=== PATIENT | female | born 1955 | race African-American/Black ===

== ENCOUNTER 2020-05-07 09:31 | Inpatient (IN) | payer MEDICARE, OTHER ==
[2020-05-07] MEDS ORDERED: Dexamethasone 10 MG/ML VIAL ONE (09:50)
[2020-05-07] MEDS ORDERED: Acetaminophen 500 MG TAB ONE (10:25)
[2020-05-07 11:14] LABS: Hemoglobin 14.9 g/dL (12.0-16.0); Mean Corpuscular HGB CONC 31.7 g/dL (32.0-36.0); Mean Corpuscular Hemoglobin 30.6 pg (27.0-31.0); Mean Corpuscular Volume 96.6 fL (78.0-98.0); Mean Platelet Volume 8.7 fL (7.4-10.4); Platelet Count 441 thou/uL (130-400); RBC Distribution Width 15.6 % (11.5-14.5); Red Blood Cell (RBC) Count 4.86 mill/uL (4.20-5.40); White Blood Cell (WBC) Count 10.7 thou/uL (4.8-10.8)
[2020-05-07] MEDS ORDERED: Ondansetron PF 4 MG/2 ML Vial IVP PRN (11:34)
[2020-05-07] MEDS ORDERED: Guaifenesin DM 100-10/5 ML UDCUP PO PRN (11:34)
[2020-05-07] MEDS ORDERED: Ondansetron ODT 4 MG TAB PO PRN (11:34)
[2020-05-07] MEDS ORDERED: Enoxaparin Sodium 40 MG/0.4 ML SYRINGE SC SCH (11:34)
--- NOTE | 2020-05-07 11:34 | PDOC.FPRHP ---
- History of Present Illness Chief Complaint: increased SOB History of Present Illness: This 65 yo F is a bounceback < 24 hours from discharge to SNF. She arrived at [facility] approximately at 9 pm last night and was hypoxic in the 70s%. It took the nursing staff several hours of placing patient on oxygen face mask and repositioning her to get her oxygen saturation back into the 80s%. The patient cannot recall any specific time or event that led to her worsening status. She endorsed feeling more short of breath; but denies any associated chest pain, increased coughing, change in sputum production, fever, nausea, or vomiting. Denies pain w/ inspiration. She reports feeling like she takes shallow breaths when she does not "focus on my breathing." ED Course: Received dexamethasone 10mg in ED. Repeated labs and CTA of chest. - Allergies/Adverse Reactions Allergies Allergy/AdvReac Type Severity Reaction Status Date / Time Penicillins Allergy Verified 05/07/20 00:42 - Home Medications Medication Instructions Recorded Confirmed Type Aspirin [Ecotrin Low Strength] 81 mg PO DAILY 04/19/20 05/07/20 History Albuterol Sulfate [Proventil Hfa] 2 puff INH Q4HR PRN #1 inhaler 05/02/20 Rx Enoxaparin Sodium [Lovenox] 70 mg SC BID 14 Days #14 syringe 05/02/20 05/07/20 Rx Guaifenesin DM 100-10 [Robitussin 15 ml PO Q4H PRN ml 05/02/20 05/07/20 Rx DM] Inhaler, Assist Devices 1 each MC DAILY #1 spacer 05/02/20 05/07/20 Rx [Aerochamber Plus Flow-Vu] Tiotropium [place] [Spiriva 2 inh IH DAILY #1 inhaler 05/02/20 05/07/20 Rx Respimat] Acetaminophen [Tylenol Regular 650 mg PO Q4H PRN tab 05/06/20 05/07/20 Rx Strength] Albuterol Sulfate [Proventil Hfa] 2 puff INH [id number] PRN aer 05/06/20 05/07/20 Rx Calcium Carbonate [Tums] 1,000 mg PO Q4H PRN tab 05/06/20 05/07/20 Rx Furosemide [Lasix] 20 mg PO DAILY tab 08/19/20 08/20/20 Rx Ipratropium [Atrovent HFA] 1 puff INH QID-RT aerosol 05/06/20 05/07/20 Rx Ipratropium [Atrovent HFA] 1 puff INH QID-RT PRN aerosol 05/06/20 05/07/20 Rx Mometasone 200 MCG [Asmanex Hfa 400 mcg INH BID-RT inhaler 05/06/20 05/07/20 Rx 200 Mcg] Pantoprazole [Protonix] 40 mg PO DAILY PRN pk 05/06/20 05/07/20 Rx predniSONE 50 mg PO QAM-WM #14 tab 05/06/20 05/07/20 Rx - History PMHx: HTN, presumed COPD, reported hx of CHF but no Echo. PSHx: x2 FHx: noncontributory Social: - Current smoker prior to becoming ill. Last cigarette about 1 month ago. 50- pack year history. - denies alcohol - denies illicit drugs - Review of Systems General: denies: fever/chills, weight/appetite/sleep changes ENT: denies: nasal congestion Respiratory: reports: cough, shortness of breath, exercise intolerance Cardiovascular: denies: chest pain, edema, orthopnea Gastrointestinal: denies: nausea, vomiting, abdominal pain Genitourinary: denies: dysuria Skin: denies: rashes Musculoskeletal: denies: pain, swelling Neurological: denies: syncope Psychological: denies: anxiety, depression - Vital signs BP: 103/57, Pulse: 72, Resp: 23, Pain: 0, O2 sat: 93 on (High Flow O2), Time: 11:42. Wt: 96 kg - Physical Exam Constitutional: NAD, awake, alert and oriented HEENT: normocephalic and atraumatic, PERRLA, conjunctiva clear, no scleral icterus, grossly normal hearing, MMM Neck: trachea midline, no LAD, no JVD, no thyromegaly Heart: RRR, normal S1/S2, no murmurs/rubs/gallops, pulses present, no edema ( appears euvolemic) -Lungs: dimished breath sounds bilaterally, no wheezing, difficult to auscultate, no dullness to percussion Abdomen: soft, non-tender, no masses/distention -Abdomen: no CVA tenderness Musculoskeletal: normal structure, normal tone Neurological: no focal deficit -Skin: small 1 cm diameter skin abrasion on L buttocks Psychiatric: normal mood and affect, intact recent and remote memory FMR H&P: Results - Labs Result Diagrams: 05/07/20 11:03 05/07/20 11:03 Lab results: WBC 10.7 thou/uL (4.8-10.8) 05/07/20 11:03 Hgb 14.9 g/dL (12.0-16.0) 05/07/20 11:03 Hct 46.9 % (36.0-47.0) 05/07/20 11:03 MCV 96.6 fL (78.0-98.0) 05/07/20 11:03 Plt Count 441 thou/uL (130-400) H 05/07/20 11:03 - EKG Interpretation EKG: NSR - Radiology Interpretation Chest x-ray Status: image reviewed by me, report reviewed by me CT scan - chest Status: image reviewed by me, report reviewed by me Additional comment: no pulmonary embolus. Stable interstitial lung disease. FMR H&P: A/P - Problem List (1) HTN (hypertension) Current Visit: No Status: Acute Code(s): I10 - ESSENTIAL (PRIMARY) HYPERTENSION (2) Pneumonia due to COVID-19 virus Current Visit: No Status: Acute Code(s): U07.1 - COVID-19; J12.89 - OTHER VIRAL PNEUMONIA - Plan 65 yo F readmitted less than 1 day after discharge to SNF facility due to : Acute vs. [id number] hypoxic respiratory failure 2/2 Covid pneumonia DDx: pt may likely also have COPD versus other chronic interstitial lung disease. Pt did tell me she was living in an apartment that has asbestos and got new apartment assigned on her last admission; this could be potential cause of lung problems. Will assess how long she lived in that apartment. Consider other atypical causes such as superimposed histoplasmosis, coccicioides, although pt is immunocompetent as far as we know. Otherwise, we may consider autoimmune workup such as sarcoidosis and check other autoimmune biomarkers. Her smoking history may suggest pulmonary fibrosis or langerhans cell histiocytosis. - patient has had difficulty weaning off of oxygen - CTA rule out PE - we will continue inhaled treatments of mometasone, ipratropium, albuterol - continue prednisone at 40mg PO daily - patient is tolerating PO so we will keep her on PO medications. - continue O2 support, varies between 5L NC and requiring HFNC - > 20 days from onset of symptoms. Discontinue Covid precautions. Hx of HTN Questionable history of CHF - monitor BPs Smoking History - continue cessation Code: FULL VTE: therapeutic lovenox GI ppx: none Abx: none Diet: Heart healthy Disposition/LOS: admit to telemetry, inpatient. ELOS> 48H. Addendum - Attending - Attending Attestation Date/Time: 05/07/20 4849 I personally evaluated the patient and discussed the management with Dr. Grimes. I agree with the History, Examination, Assessment and Plan documented above with any addition or exceptions noted below. Patient appears the same clinically as upon discharge. I am uncertain of the reason for her decompensation. I feel she likely just has residual pulmonary damage from COVID, but we will d/w pulm and ID.
[2020-05-07] MEDS ORDERED: Albuterol Sulfate 2.5 mg/3 ml Neb NEB PRN (11:36)
[2020-05-07] MEDS ORDERED: Ipratropium Bromide 2.5 ml Neb NEB PRN (11:36)
[2020-05-07 11:42] LABS: Band 1 % (5-11); Lymphocytes 15 % (21-51); MDiff Complete? YES; Monocytes 6 % (0-10); Neutrophil 77 % (42-75); Platelet Morphology Comment Appears Increased; RBC Morphology Normal; Reactive Lymphocytes 1 % (0-10)
--- NOTE | 2020-05-07 11:47 | CT ---
CT PULMONARY ANGIOGRAM WITH IV CONTRAST AND 3-D POSTPROCESSING: HISTORY:Worsening shortness of breath. COPD COMPARISON: 04/19/2020 FINDINGS: There is good contrast opacification of the pulmonary arterial vasculature without filling defects to suggest pulmonary embolism. Dilated pulmonary arterial trunk is stable at 3.8 cm. The thoracic aorta is not opacified opacified without aneurysm. No pleural or pericardial effusions are seen. No pneumothoraces, focal areas of consolidation, groundglass opacities or lung nodules are noted. Chr onic parenchymal changes (interstitial lung disease) are stable. There are degenerative changes in the spine. Upper abdominal tomograms demonstrate cholelithiasis and left renal atrophy.. IMPRESSION: No CT evidence of pulmonary embolism.
[2020-05-07 11:53] LABS: ALT (SGPT) 55 U/L (8-55); AST (SGOT) 25 U/L (5-34); Albumin 3.2 g/dL (3.4-4.8); Alkaline Phosphatase 73 U/L (40-110); Anion Gap 17 mmol/L (10-20); BUN (Urea Nitrogen) 41 mg/dL (9.8-20.1); Bilirubin, Total 0.8 mg/dL (0.2-1.2); Calc. Creatinine Clearance 0 mL/min (70-130); Calcium 8.1 mg/dL (7.8-10.44); Carbon Dioxide 20 mmol/L (23-31); Chloride 99 mmol/L (98-107); Estimated GFR-MDRD 89; Globulin 2.8 g/dL (2.4-3.5); Glucose 122 mg/dL (80-115); Potassium 5.5 mmol/L (3.5-5.1); Sodium 130 mmol/L (136-145)
[2020-05-07] MEDS ORDERED: Enoxaparin Sodium 80 MG/0.8 ML SYRINGE SC SCH (12:15)
[2020-05-07] MEDS ORDERED: Iopamidol-370 76% 500 ML 1 ML ONE (13:38)
[2020-05-07] MEDS ORDERED: Albuterol Sulfate 2.5 mg/3 ml Neb NEB SCH (14:30)
[2020-05-07] MEDS ORDERED: Ipratropium Bromide 2.5 ml Neb NEB SCH (14:30)
[2020-05-07] MEDS: Lactated Ringer's 1,000 ML IV SCH (16:03)
[2020-05-07] MEDS ORDERED: Albuterol 200 PUFF (6.7GM INHALER) INH PRN (16:59)
[2020-05-07] MEDS: Albuterol 200 PUFF (6.7GM INHALER) INH SCH ×2 (17:22→22:12)
[2020-05-07] MEDS: Acetaminophen 325 MG TAB PO PRN ×2 (17:23→22:17)
[2020-05-07] MEDS: Enoxaparin Sodium 80 MG/0.8 ML SYRINGE SC SCH (19:40)
--- NOTE | 2020-05-07 19:40 | CON ---
DATE OF CONSULTATION: 05/07/2020 REASON FOR CONSULTATION: Persistent dyspnea, hypoxemia following resolution of the initial phase of COVID infection. HISTORY OF PRESENT ILLNESS: A 65-year-old who has a history of hypertension and had 2 or 3 weeks' history of shortness of breath before she was admitted at the beginning of this month. She also had fever and cough and diarrhea. She tried to stay home, but things got worse and she ended up admitted with O2 saturation of 68% on room air. The patient had a CT of chest on 04/19, which demonstrated interstitial prominence throughout lungs with subpleural predominance. Her SARS -CoV was positive on 04/19. The lymphocyte count 0.9. Ferritin was 570. C-reactive protein 39. D-dimer was 5.32. The patient had an extensive stay at the hospital and she was treated with enoxaparin twice daily and prednisone. It does not look like she received remdesivir or convalescent plasma. She was discharged on the and did not last long at home, came right back, so this is probably going on to the beginning of her 7th week after the onset of symptoms of her COVID infection. The lymphocyte count is at about 1300, the D-dimer is down to 1.19, the ferritin is down to 162, and a CRP is down to 0.75 with marked improvement compared with previous findings at the beginning of the month. She had a repeat CT chest angiogram with no evidence of pulmonary embolism and there was chronic parenchymal changes, but no overt consolidation. At this time, her O2 saturations were 90% on facemask and 96 on high-flow O2 supplementation. She had been using oxygen at home, but it was not clear if she used it all the time or from time to time. She was not tachycardic. She was tachypneic though. The exam was not particularly remarkable, but she did have some inspiratory crackles noticeable in the report. Currently, Ms. Garcia is seen in bed in the COVID unit. She appears comfortable at rest. She is wearing nasal cannula O2. No headaches. Sense of smell has returned. She is eating well. No vomiting. A little bit of cough, but not much. No chest pain. No abdominal pain or diarrhea. No genitourinary symptoms. No joint symptoms. No neurological symptoms. MEDICAL HISTORY: 1. Hypertension. 2. COPD. 3. Reported cardiomyopathy. Actually though we do not have the echocardiogram performed. ALLERGIES: PENICILLIN WITH RASH. FAMILY HISTORY: She lives with her son and he is apparently in no health issues. SOCIAL HISTORY: Former smoker, quit smoking within the year. No alcoholic beverage use or drug use. CURRENT MEDICATIONS: 1. Inhalers. 2. Guaifenesin. 3. Mometasone. 4. Prednisone. PHYSICAL EXAMINATION: VITAL SIGNS: Temperature 98.3, BP 119/55, pulse 60, respiratory rate 22, and O2 saturation 93 on 5 L nasal cannula. SKIN: Some minor abrasion in the left gluteal region, it was a very superficial and a healthy looking base. Peripheral IV access. She is voiding in the bedside commode. She has no lymphadenopathy. HEENT: Ocular movements conjugate. Oral cavity was not remarkable. NECK: Supple. LUNGS: A very faint crackles in a few isolated areas, but for the most part, lung sounds are clear. HEART: S1 and S2. Regular rate. No S3 or S4. ABDOMEN: Soft, not distended or tender. No ascites. No bladder distention. EXTREMITIES: No joint inflammatory activity. No edema. Pulses 1+ in dorsalis pedis. Plantar responses are flexor. Moves all extremities. NEUROLOGIC: Awake and oriented. Follows commands. Good recollection. Speech is normal. She can speak in full sentences without any issues. ASSESSMENT: 1. Hypertension. 2. Chronic obstructive pulmonary disease. 3. Smoking until recently. 4. COVID infection. Now, this is going into the 7th week following initiation of symptoms. She returns after being discharged because of dyspnea and it was not clear if she had an oximeter to measure at home or not. She did have O2 supplementation, which she is not wearing all the time apparently. DISCUSSION: It looks like her COVID infection has resolved now. We are left with the aftermath of the inflammatory process, which in her case is not very prominent. I think that she probably should do well in the upcoming days. We just have to clarify the need for her to wear O2 supplementation 24 hours a day at least at the beginning and to have a proper oximetry done that she can do at home and now we will help to reassure her and prevent the patient from coming to the emergency room. I think we can probably decrease the dose of corticosteroids to a lower dose and may consider an echocardiogram to make sure her EF is okay. It should be safer to do an echocardiogram at this point in time without any issues. I would recommend discontinuation of COVID precautions. Job ID: [id number] [email or web address]
[2020-05-07] MEDS: Mometasone Furoate 120 PUFF 220 MCG INH SCH (22:13)
[2020-05-07] MEDS: Calcium Carbonate 500 MG ChewTAB PO PRN (23:16)
[2020-05-08 00:26] VITALS: BMI 36.6
[2020-05-08] MEDS: Albuterol 200 PUFF (6.7GM INHALER) INH SCH ×6 (02:24→22:22)
[2020-05-08] MEDS: Lactated Ringer's 1,000 ML IV SCH ×3 (02:24→17:10)
[2020-05-08 04:55] LABS: #Eosinphils 0.1 thou/uL (0.0-0.7); #Lymphocytes 1.7 thou/uL (1.20-3.40); #Monocytes 1.1 thou/uL (0.11-0.59); #Neutrophils 9.2 thou/uL (1.40-6.50); %Basophils 0.1 % (0.0-1.0); %Eosinophils 0.5 % (0.0-10.0); %Lymphocytes 13.9 % (21.0-51.0); %Neutrophils 76.5 % (42.0-75.0); Hemoglobin 14.4 g/dL (12.0-16.0); Mean Corpuscular HGB CONC 33.9 g/dL (32.0-36.0); Mean Corpuscular Hemoglobin 32.5 pg (27.0-31.0); Mean Platelet Volume 8.2 fL (7.4-10.4); Platelet Count 395 thou/uL (130-400); RBC Distribution Width 15.4 % (11.5-14.5); Red Blood Cell (RBC) Count 4.42 mill/uL (4.20-5.40)
[2020-05-08 05:18] LABS: Anion Gap 14 mmol/L (10-20); BUN (Urea Nitrogen) 32 mg/dL (9.8-20.1); Calc. Creatinine Clearance 116 mL/min (70-130); Calcium 8.6 mg/dL (7.8-10.44); Carbon Dioxide 24 mmol/L (23-31); Chloride 99 mmol/L (98-107); Estimated GFR-MDRD Greater than 90; Glucose 119 mg/dL (80-115); Potassium 4.4 mmol/L (3.5-5.1); Sodium 133 mmol/L (136-145)
[2020-05-08] MEDS: Mometasone Furoate 120 PUFF 220 MCG INH SCH ×2 (06:20→19:05)
--- NOTE | 2020-05-08 07:33 | PDOC.FM ---
- Subjective Subjective: Ms. Garcia is doing well this AM. On 5L NC O2 overnight and satting in low 90s%. Denies SOB. Feels better than when she left Post. Had been living in her old apartment from 2001 until present day. It had black mold on the patricia and asbestos. She only recently applied for new apartment on her last hospital stay. 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 This often caused her respiratory trouble. Born and raised in [facility]. Denies traveling or living for certain periods of time in [facility] or other parts of the country. - Objective MAR Reviewed: Yes Vital Signs & Weight: Vital Signs (12 hours) Temp Pulse Resp BP Pulse Ox 05/08/20 02:27 97.8 F 77 24 H 105/59 L 97 05/07/20 19:38 98.4 F 80 31 H 120/67 97 Weight Weight 96.615 kg I&O: 05/07/20 05/08/20 05/09/20 06:59 06:59 06:59 Intake Total 1674 Output Total 970 Balance 704 Result Diagrams: 05/08/20 04:42 05/08/20 04:42 Phys Exam - Physical Examination Constitutional: NAD Neck: supple scattered crackles, otherwise clear Cardiovascular: RRR, no significant murmur overnight tele showed Sinus rhythm 60-70s, 16 beats of PAT w/ HR 150s Gastrointestinal: soft Musculoskeletal: no edema Neurological: non-focal, moves all 4 limbs Psychiatric: normal affect, A&O x 3 Dx/Plan (1) HTN (hypertension) Code(s): I10 - ESSENTIAL (PRIMARY) HYPERTENSION Status: Acute (2) Pneumonia due to COVID-19 virus Code(s): U07.1 - COVID-19; J12.89 - OTHER VIRAL PNEUMONIA Status: Acute - Plan Plan: 65 yo F readmitted less than 1 day after discharge to SNF facility due to : Acute vs. [id number] hypoxic respiratory failure 2/2 Covid pneumonia - consult ID. Appreciate recs. Likely post-covid recovery. - continue nebs/inhaled treatments of mometasone, ipratropium, albuterol - continue prednisone at 50mg PO daily. Slow taper of steroids for about 1 month - continue O2 support, varies between 5L NC and requiring HFNC. Wean O2 as tolerated - > 20 days from onset of symptoms. Discontinue Covid precautions. - Aggressive PT/OT due to physical deconditioning Hx of HTN Questionable history of CHF - monitor BPs - Echocardiogram ordered Smoking History - continue to encourage cessation Code: FULL VTE: therapeutic lovenox Diet: Heart healthy Disposition/LOS: admit to telemetry, inpatient. ELOS> 48H. Addendum - Attending - Attending Attestation Date/Time: 05/08/20 6041 I personally evaluated the patient and discussed the management with Dr. Grimes. I agree with the History, Examination, Assessment and Plan documented above with any addition or exceptions noted below. Bibasilar crackles, no inc wob.
[2020-05-08] MEDS: Enoxaparin Sodium 80 MG/0.8 ML SYRINGE SC SCH ×2 (08:52→20:05)
[2020-05-08] MEDS: predniSONE 50 MG TAB PO SCH (08:52)
[2020-05-08] MEDS ORDERED: predniSONE 20 MG TAB PO SCH (09:00)
[2020-05-08] MEDS: Acetaminophen 325 MG TAB PO PRN (16:06)
[2020-05-08] MEDS: Calcium Carbonate 500 MG ChewTAB PO PRN (20:08)
[2020-05-09] MEDS: Acetaminophen 325 MG TAB PO PRN ×3 (00:38→19:57)
[2020-05-09] MEDS: Albuterol 200 PUFF (6.7GM INHALER) INH SCH ×5 (02:46→22:25)
[2020-05-09] MEDS: Lactated Ringer's 1,000 ML IV SCH ×2 (02:55→15:52)
[2020-05-09] MEDS: predniSONE 50 MG TAB PO SCH (07:47)
[2020-05-09] MEDS: Enoxaparin Sodium 80 MG/0.8 ML SYRINGE SC SCH ×2 (07:47→19:56)
[2020-05-09] MEDS: Mometasone Furoate 120 PUFF 220 MCG INH SCH ×2 (08:20→18:17)
--- NOTE | 2020-05-09 08:34 | PDOC.FM ---
- Subjective Subjective: Pt resting comfortably, no complaints. Desires breakfast no fever no chills no cp no wheezing - Objective Vital Signs & Weight: Vital Signs (12 hours) Temp Pulse Resp BP Pulse Ox 05/09/20 08:00 97.9 F 68 22 H 111/59 L 90 L 05/09/20 03:00 98.2 F 70 21 H 107/58 L 91 L 05/08/20 23:39 98.9 F 78 21 H 106/52 L 91 L Weight Weight 98.157 kg I&O: 05/08/20 05/09/20 05/10/20 06:59 06:59 06:59 Intake Total 1674 2330 Output Total 970 625 Balance 704 1705 Result Diagrams: 05/08/20 04:42 05/08/20 04:42 Phys Exam - Physical Examination Constitutional: NAD HEENT: PERRLA, moist MMs Neck: supple, full ROM Respiratory: no wheezing feint crackles bilaterally Cardiovascular: RRR, no significant murmur Gastrointestinal: soft, non-tender Musculoskeletal: no edema, pulses present Neurological: normal sensation, moves all 4 limbs Psychiatric: normal affect, A&O x 3 Skin: no rash, normal turgor Dx/Plan (1) Acute hypoxemic respiratory failure Code(s): J96.01 - ACUTE RESPIRATORY FAILURE WITH HYPOXIA Status: Acute (2) COPD exacerbation Code(s): J44.1 - CHRONIC OBSTRUCTIVE PULMONARY DISEASE W (ACUTE) EXACERBATION Status: Acute (3) HTN (hypertension) Code(s): I10 - ESSENTIAL (PRIMARY) HYPERTENSION Status: Acute (4) Pneumonia due to COVID-19 virus Code(s): U07.1 - COVID-19; J12.89 - OTHER VIRAL PNEUMONIA Status: Acute - Plan Plan: 65 yo F readmitted less than 1 day after discharge to SNF facility due to : Acute vs. [id number]-[id number] hypoxic respiratory failure 2/2 Covid pneumonia A- stable, pt is in post acute phase of infection and is in inflamatory phase. ID consulted, appreciate recs P- continue nebs/inhaled treatments of mometasone, ipratropium, albuterol - continue prednisone at 50mg PO daily. Slow taper of steroids for about 1 month - continue O2 support, Wean O2 as tolerated - > 20 days from onset of symptoms. Discontinue Covid precautions. - Aggressive PT/OT due to physical deconditioning Hx of HTN Questionable history of CHF - monitor BPs - Echocardiogram ordered Smoking History - continue to encourage cessation Code: FULL VTE: therapeutic lovenox Diet: Heart healthy Disposition/LOS: admit to telemetry, inpatient. ELOS> 48H. Addendum - Attending - Attending Attestation Date/Time: 05/09/20 7776 I personally evaluated the patient and discussed the management with Dr. Preston. I agree with the History, Examination, Assessment and Plan documented above with any addition or exceptions noted below.
[2020-05-09] MEDS: Calcium Carbonate 500 MG ChewTAB PO PRN (23:58)
[2020-05-10] MEDS: Albuterol 200 PUFF (6.7GM INHALER) INH SCH ×6 (02:39→22:14)
[2020-05-10 04:58] LABS: #Eosinphils 0.2 thou/uL (0.0-0.7); #Lymphocytes 1.7 thou/uL (1.20-3.40); #Monocytes 1.2 thou/uL (0.11-0.59); #Neutrophils 7.5 thou/uL (1.40-6.50); %Basophils 0.1 % (0.0-1.0); %Eosinophils 1.6 % (0.0-10.0); %Lymphocytes 15.8 % (21.0-51.0); %Neutrophils 71.5 % (42.0-75.0); Hemoglobin 12.5 g/dL (12.0-16.0); Mean Corpuscular HGB CONC 32.9 g/dL (32.0-36.0); Mean Corpuscular Hemoglobin 31.8 pg (27.0-31.0); Mean Corpuscular Volume 96.8 fL (78.0-98.0); Mean Platelet Volume 8.5 fL (7.4-10.4); Platelet Count 312 thou/uL (130-400); RBC Distribution Width 15.5 % (11.5-14.5); Red Blood Cell (RBC) Count 3.92 mill/uL (4.20-5.40); White Blood Cell (WBC) Count 10.5 thou/uL (4.8-10.8)
[2020-05-10 05:15] LABS: Anion Gap 10 mmol/L (10-20); BUN (Urea Nitrogen) 23 mg/dL (9.8-20.1); Calc. Creatinine Clearance 133 mL/min (70-130); Calcium 7.8 mg/dL (7.8-10.44); Carbon Dioxide 25 mmol/L (23-31); Chloride 105 mmol/L (98-107); Estimated GFR-MDRD Greater than 90; Glucose 85 mg/dL (80-115); Potassium 3.7 mmol/L (3.5-5.1); Sodium 136 mmol/L (136-145)
[2020-05-10] MEDS: Enoxaparin Sodium 80 MG/0.8 ML SYRINGE SC SCH ×2 (08:10→21:54)
[2020-05-10] MEDS: predniSONE 50 MG TAB PO SCH (08:11)
[2020-05-10] MEDS: Mometasone Furoate 120 PUFF 220 MCG INH SCH ×2 (08:50→18:09)
[2020-05-10] MEDS: Acetaminophen 325 MG TAB PO PRN (09:17)
[2020-05-10] MEDS ORDERED: Calcium Carbonate 500 MG ChewTAB PO PRN (09:20)
--- NOTE | 2020-05-10 09:33 | PDOC.FM ---
- Subjective Subjective: pt feeling well, she has no complaints. no sob, no wheezing no cp, no palpitations - Objective Vital Signs & Weight: Vital Signs (12 hours) Temp Pulse Resp BP Pulse Ox 05/10/20 08:00 96 05/10/20 07:30 97.8 F 70 23 H 121/58 L 96 05/10/20 03:00 98.8 F 70 22 H 106/59 L 94 L 05/09/20 23:58 98.6 F 81 22 H 120/63 96 Weight Weight 98.702 kg I&O: 05/09/20 05/10/20 05/11/20 06:59 06:59 06:59 Intake Total 2330 1560 Output Total 625 1000 Balance 1705 560 Result Diagrams: 05/10/20 04:31 05/10/20 04:31 Phys Exam - Physical Examination Constitutional: NAD HEENT: moist MMs, sclera anicteric Neck: no JVD, full ROM Respiratory: no wheezing feint bilat diffuse crackles Cardiovascular: RRR, no significant murmur Gastrointestinal: soft, non-tender Musculoskeletal: no edema, pulses present Neurological: normal sensation, moves all 4 limbs Psychiatric: normal affect, A&O x 3 Skin: no rash, normal turgor Dx/Plan (1) Acute hypoxemic respiratory failure Code(s): J96.01 - ACUTE RESPIRATORY FAILURE WITH HYPOXIA Status: Acute (2) COPD exacerbation Code(s): J44.1 - CHRONIC OBSTRUCTIVE PULMONARY DISEASE W (ACUTE) EXACERBATION Status: Acute (3) HTN (hypertension) Code(s): I10 - ESSENTIAL (PRIMARY) HYPERTENSION Status: Acute (4) Pneumonia due to COVID-19 virus Code(s): U07.1 - COVID-19; J12.89 - OTHER VIRAL PNEUMONIA Status: Acute - Plan Plan: 65 yo F readmitted less than 1 day after discharge to SNF facility due to : Acute vs. [id number] hypoxic respiratory failure 2/2 Covid pneumonia A- stable, pt is in post acute phase of infection and is in inflamatory phase. ID consulted, appreciate recs P- continue nebs/inhaled treatments of mometasone, ipratropium, albuterol - continue prednisone at 50mg PO daily. will plan for a slow taper of steroids for about 1 month - continue O2 support, Wean O2 as tolerated - > 20 days from onset of symptoms. Discontinue Covid precautions. - Aggressive PT/OT due to physical deconditioning Hx of HTN Questionable history of CHF - monitor BPs - Echocardiogram ordered Smoking History - continue to encourage cessation Code: FULL VTE: therapeutic lovenox Diet: Heart healthy Disposition/LOS: possibly home tomorrow Addendum - Attending - Attending Attestation Date/Time: 05/10/20 1114 I personally evaluated the patient and discussed the management with the team. I agree with the History, Examination, Assessment and Plan documented above with any addition or exceptions noted below.
[2020-05-10 17:03] LABS: Hemoglobin 12.8 g/dL (12.0-16.0); Platelet Count 312 thou/uL (130-400)
[2020-05-10 17:21] LABS: Calc. Creatinine Clearance 120 mL/min (70-130); Estimated GFR-MDRD Greater than 90
[2020-05-11] MEDS: Acetaminophen 325 MG TAB PO PRN ×4 (01:09→22:53)
[2020-05-11] MEDS: Albuterol 200 PUFF (6.7GM INHALER) INH SCH ×6 (02:14→21:05)
--- NOTE | 2020-05-11 07:01 | PDOC.FM ---
- Subjective Subjective: Pt is doing well today. She is working with PT/OT but does not know her oxygenation. She denies fever, chills, worsening SOB, urinary changes, constipation. She is tolerating a diet. She would like to be home but understands she needs some form of rehab after hospitalization. - Objective Vital Signs & Weight: Vital Signs (12 hours) Temp Pulse Resp BP Pulse Ox 05/11/20 04:25 98.2 F 72 24 H 114/63 100 05/11/20 00:30 98.5 F 80 24 H 109/53 L 98 05/10/20 20:00 98.5 F 80 24 H 117/66 94 L Weight Weight 98.702 kg I&O: 05/10/20 05/11/20 05/12/20 06:59 06:59 06:59 Intake Total 1560 1150 Output Total 1000 350 Balance 560 800 Result Diagrams: 05/10/20 16:54 05/10/20 16:54 Phys Exam - Physical Examination Constitutional: NAD HEENT: PERRLA, moist MMs Neck: no JVD, full ROM Respiratory: no wheezing, clear to auscultation bilateral Cardiovascular: RRR, no significant murmur Gastrointestinal: soft, non-tender, positive bowel sounds Musculoskeletal: no edema, pulses present Neurological: normal sensation, moves all 4 limbs Psychiatric: normal affect, A&O x 3 Skin: no rash, cap refill <2 seconds Dx/Plan (1) Acute hypoxemic respiratory failure Code(s): J96.01 - ACUTE RESPIRATORY FAILURE WITH HYPOXIA Status: Acute (2) COPD exacerbation Code(s): J44.1 - CHRONIC OBSTRUCTIVE PULMONARY DISEASE W (ACUTE) EXACERBATION Status: Acute (3) Elevated troponin I level Code(s): R79.89 - OTHER SPECIFIED ABNORMAL FINDINGS OF BLOOD CHEMISTRY Status : Acute (4) HTN (hypertension) Code(s): I10 - ESSENTIAL (PRIMARY) HYPERTENSION Status: Acute (5) Pneumonia due to COVID-19 virus Code(s): U07.1 - COVID-19; J12.89 - OTHER VIRAL PNEUMONIA Status: Acute - Plan Plan: 65 yo F readmitted less than 1 day after discharge to SNF facility due to : Acute vs. [id number] hypoxic respiratory failure 2/2 Covid pneumonia A- stable, pt is in post acute phase of infection and is in inflamatory phase. ID consulted, appreciate recs P- continue nebs/inhaled treatments of mometasone, ipratropium, albuterol - continue prednisone at 50mg PO daily. will plan for a slow taper of steroids for about 1 month - continue O2 support, Wean O2 as tolerated - > 20 days from onset of symptoms. Discontinue Covid precautions. - Aggressive PT/OT due to physical deconditioning. Will monitor for improvement in oxygenation while working with PT/OT. At rest she is requiring 4 L NC oxygen. Hx of HTN Questionable history of CHF - monitor BPs - stable, WNL - Echocardiogram revealed diastolic dysfunction. Smoking History - continue to encourage cessation Code: FULL VTE: therapeutic lovenox Diet: Heart healthy Disposition/LOS: monitor for improvement of oxygenation while working with PT/ OT as she will need inpt rehab vs skilled on discharge. Addendum - Attending - Attending Attestation Date/Time: 05/11/20 2735 I personally evaluated the patient and discussed the management with Dr. Tellez. I agree with the History, Examination, Assessment and Plan documented above with any addition or exceptions noted below. Pt is doing ok. O2 is being weaned. Continue therapy.
[2020-05-11] MEDS: Mometasone Furoate 120 PUFF 220 MCG INH SCH ×2 (07:13→18:53)
[2020-05-11] MEDS: predniSONE 50 MG TAB PO SCH (07:43)
[2020-05-11] MEDS: Enoxaparin Sodium 80 MG/0.8 ML SYRINGE SC SCH ×2 (07:43→21:03)
[2020-05-12] MEDS: Albuterol 200 PUFF (6.7GM INHALER) INH SCH ×6 (02:29→23:31)
[2020-05-12 05:03] LABS: #Eosinphils 0.3 thou/uL (0.0-0.7); #Lymphocytes 1.8 thou/uL (1.20-3.40); #Monocytes 1.2 thou/uL (0.11-0.59); #Neutrophils 8.9 thou/uL (1.40-6.50); %Basophils 0.4 % (0.0-1.0); %Eosinophils 2.4 % (0.0-10.0); %Lymphocytes 14.9 % (21.0-51.0); %Monocytes 9.9 % (0.0-10.0); %Neutrophils 72.5 % (42.0-75.0); Hemoglobin 12.1 g/dL (12.0-16.0); Mean Corpuscular HGB CONC 31.5 g/dL (32.0-36.0); Mean Corpuscular Hemoglobin 30.8 pg (27.0-31.0); Mean Corpuscular Volume 97.8 fL (78.0-98.0); Mean Platelet Volume 8.4 fL (7.4-10.4); Platelet Count 278 thou/uL (130-400); Red Blood Cell (RBC) Count 3.93 mill/uL (4.20-5.40); White Blood Cell (WBC) Count 12.3 thou/uL (4.8-10.8)
[2020-05-12 05:27] LABS: Anion Gap 11 mmol/L (10-20); BUN (Urea Nitrogen) 29 mg/dL (9.8-20.1); Calc. Creatinine Clearance 118 mL/min (70-130); Calcium 7.5 mg/dL (7.8-10.44); Carbon Dioxide 22 mmol/L (23-31); Chloride 106 mmol/L (98-107); Estimated GFR-MDRD Greater than 90; Glucose 123 mg/dL (80-115); Potassium 3.3 mmol/L (3.5-5.1); Sodium 136 mmol/L (136-145)
[2020-05-12] MEDS: Mometasone Furoate 120 PUFF 220 MCG INH SCH ×2 (06:50→19:11)
--- NOTE | 2020-05-12 06:55 | PDOC.FM ---
- Subjective Subjective: Pt is doing well. She remains dyspneic on ambulation but not at rest. She feels much better than when she was admitted. She would like to go home but is willing to go to rehab. She would prefer a short time. She is working well with rehab. - Objective Vital Signs & Weight: Vital Signs (12 hours) Temp Pulse Resp BP Pulse Ox 05/12/20 02:57 98.5 F 75 28 H 111/56 L 94 L 05/11/20 23:44 72 18 100/51 L 93 L 05/11/20 19:59 92 L 05/11/20 19:51 98.0 F 83 18 121/67 92 L Weight Weight 98.702 kg I&O: 05/10/20 05/11/20 05/12/20 06:59 06:59 06:59 Intake Total 1560 1150 900 Output Total 1000 350 550 Balance 560 800 350 Result Diagrams: 05/12/20 04:26 05/12/20 04:26 Phys Exam - Physical Examination Constitutional: NAD HEENT: PERRLA, moist MMs Neck: no JVD, full ROM Respiratory: no wheezing crackles on the bases Cardiovascular: RRR, no significant murmur Gastrointestinal: soft, positive bowel sounds Musculoskeletal: no edema, pulses present Neurological: non-focal, normal sensation Psychiatric: normal affect, A&O x 3 Skin: no rash, cap refill <2 seconds Dx/Plan (1) Acute hypoxemic respiratory failure Code(s): J96.01 - ACUTE RESPIRATORY FAILURE WITH HYPOXIA Status: Acute (2) COPD exacerbation Code(s): J44.1 - CHRONIC OBSTRUCTIVE PULMONARY DISEASE W (ACUTE) EXACERBATION Status: Acute (3) Elevated troponin I level Code(s): R79.89 - OTHER SPECIFIED ABNORMAL FINDINGS OF BLOOD CHEMISTRY Status : Acute (4) HTN (hypertension) Code(s): I10 - ESSENTIAL (PRIMARY) HYPERTENSION Status: Acute (5) Pneumonia due to COVID-19 virus Code(s): U07.1 - COVID-19; J12.89 - OTHER VIRAL PNEUMONIA Status: Acute - Plan Plan: 65 yo F readmitted less than 1 day after discharge to SNF facility due to : Acute vs. [id number] hypoxic respiratory failure 2/2 Covid pneumonia A- stable, pt is in post acute phase of infection and is in inflamatory phase. ID consulted, appreciate recs P- continue nebs/inhaled treatments of mometasone, ipratropium, albuterol - continue prednisone at 50mg PO daily. will plan for a slow taper of steroids for about 1 month - continue O2 support, Wean O2 as tolerated - > 20 days from onset of symptoms. Discontinue Covid precautions. - Aggressive PT/OT due to physical deconditioning. Will monitor for improvement in oxygenation while working with PT/OT. At rest she is requiring 4 L NC oxygen. Acute care rehab screen placed - pending [facility] referral - bibasilar crackles - CXR ordered Hx of HTN - monitor BPs - stable, WNL - Echocardiogram revealed diastolic dysfunction. Smoking History - continue to encourage cessation Hypokalemia 3.3 - replete Code: FULL VTE: therapeutic lovenox Diet: Heart healthy Disposition/LOS: monitor for improvement of oxygenation while working with PT/ OT as she will need inpt rehab vs skilled on discharge. Addendum - Attending - Attending Attestation Date/Time: 05/12/20 1116 I personally evaluated the patient and discussed the management with Dr. Tellez. I agree with the History, Examination, Assessment and Plan documented above with any addition or exceptions noted below. Pt is doing better. She remains on 4 L NC but overall appears improved. Awaiting inpt rehab screen. If accepting will go there if not, will likely transition to [facility].
[2020-05-12] MEDS ORDERED: Potassium Chloride 20 MEQ TAB PO SCH (07:00)
[2020-05-12] MEDS: predniSONE 50 MG TAB PO SCH (08:36)
[2020-05-12] MEDS: Enoxaparin Sodium 80 MG/0.8 ML SYRINGE SC SCH ×2 (08:36→20:53)
[2020-05-12] MEDS: Acetaminophen 325 MG TAB PO PRN ×2 (13:55→23:30)
--- NOTE | 2020-05-12 14:43 | PDOC.FMACP ---
Advance Care Planning - Problem (1) Palliative care encounter Status: Acute Code(s): Z51.5 - ENCOUNTER FOR PALLIATIVE CARE (2) Acute hypoxemic respiratory failure Status: Acute Code(s): J96.01 - ACUTE RESPIRATORY FAILURE WITH HYPOXIA (3) COPD exacerbation Status: Acute Code(s): J44.1 - CHRONIC OBSTRUCTIVE PULMONARY DISEASE W (ACUTE ) EXACERBATION - Note Participants: patient, family, palliative care Summary: Palliative Care addressed Advanced Care Planning. The diagnosis, prognosis and goals of care were discussed. Appropriate forms and documentation to accomplish the goals of care were discussed. All questions were answered. Mr Garcia elected to complete MPOA, Directive to physician, and OOHDNAR. Copies of Directive and MPOA made and placed on chart, original to patient. OOHDNAR on chart waiting physician signature. He is desiring comfort measures. Please also refer to Palliative Care notes in note section. Time Spent (mins): 20
--- NOTE | 2020-05-12 20:54 | RAD ---
PORTABLE CHEST: Date: 05/12/2020 INDICATION: Abnormal physical exam. Abnormal chest auscultation. COMPARISON: 1 view chest dated 05/07/2020. FINDINGS: There is diffuse vascular congestion and hazy alveolar infiltrates or edema seen throughout both lung s, more prominent in the lung bases. Evidence of small bilateral effusions. Mild cardiomegaly. IMPRESSION: Vascular congestion with hazy alveolar opacities which could represent edema or superimposed inflamma tory infiltrate. Evidence of bilateral effusions. POS: [facility]
[2020-05-13] MEDS: Albuterol 200 PUFF (6.7GM INHALER) INH SCH ×6 (03:30→22:33)
[2020-05-13] MEDS: Acetaminophen 325 MG TAB PO PRN (06:03)
--- NOTE | 2020-05-13 07:01 | PDOC.FM ---
- Subjective Subjective: Pt is doing well today. She has no complaints. Working well with PT/OT. Her oxygen saturations are unchanged. She has been accepted [facility]. - Objective Vital Signs & Weight: Vital Signs (12 hours) Temp Pulse Resp BP Pulse Ox 05/13/20 04:06 98.3 F 85 22 H 114/58 L 100 05/12/20 23:39 98.7 F 83 22 H 121/68 95 05/12/20 20:00 95 05/12/20 19:30 98.4 F 88 21 H 131/70 95 Weight Weight 98.702 kg I&O: 05/12/20 05/13/20 05/14/20 06:59 06:59 06:59 Intake Total 900 Output Total 550 Balance 350 Result Diagrams: 05/13/20 07:19 05/13/20 07:19 Phys Exam - Physical Examination Constitutional: NAD HEENT: PERRLA, moist MMs Neck: no JVD, full ROM mild bibasilar crackles Cardiovascular: RRR, no significant murmur Gastrointestinal: soft, positive bowel sounds Musculoskeletal: no edema, pulses present Neurological: non-focal, normal sensation Psychiatric: normal affect, A&O x 3 Skin: no rash, normal turgor Dx/Plan (1) Acute hypoxemic respiratory failure Code(s): J96.01 - ACUTE RESPIRATORY FAILURE WITH HYPOXIA Status: Acute (2) COPD exacerbation Code(s): J44.1 - CHRONIC OBSTRUCTIVE PULMONARY DISEASE W (ACUTE) EXACERBATION Status: Acute (3) Elevated troponin I level Code(s): R79.89 - OTHER SPECIFIED ABNORMAL FINDINGS OF BLOOD CHEMISTRY Status : Acute (4) HTN (hypertension) Code(s): I10 - ESSENTIAL (PRIMARY) HYPERTENSION Status: Acute (5) Pneumonia due to COVID-19 virus Code(s): U07.1 - COVID-19; J12.89 - OTHER VIRAL PNEUMONIA Status: Acute - Plan Plan: 65 yo F readmitted less than 1 day after discharge to SNF facility due to : Acute vs. [id number] hypoxic respiratory failure 2/2 Covid pneumonia A- stable, pt is in post acute phase of infection and is in inflamatory phase. ID consulted, appreciate recs P- continue nebs/inhaled treatments of mometasone, ipratropium, albuterol - continue prednisone at 50mg PO daily. will plan for a slow taper of steroids for about 1 month - continue O2 support, Wean O2 as tolerated - > 20 days from onset of symptoms. Discontinue Covid precautions. - Accepted to [facility] - CXR revealed fluid overload - lasix administered Vascular Congestion - as above Hx of HTN - monitor BPs - stable, WNL - Echocardiogram revealed diastolic dysfunction. Smoking History - continue to encourage cessation Hypokalemia - monitor Code: FULL VTE: therapeutic lovenox Diet: Heart healthy Disposition/LOS: discharge to [facility] Addendum - Attending - Attending Attestation Date/Time: 05/13/20 0902 I personally evaluated the patient and discussed the management with Dr. Tellez. I agree with the History, Examination, Assessment and Plan documented above with any addition or exceptions noted below. The patient is sitting up eating breakfast. She remains on 4L NC but is feeling ok. CXR showed congestion. Will give lasix. Pt has been accepted to inpt rehab, plan to dc later today.
[2020-05-13] MEDS: Mometasone Furoate 120 PUFF 220 MCG INH SCH ×2 (07:11→19:00)
[2020-05-13 07:32] LABS: Hemoglobin 12.4 g/dL (12.0-16.0); Platelet Count 251 thou/uL (130-400)
[2020-05-13 09:19] LABS: Calc. Creatinine Clearance 125 mL/min (70-130); Estimated GFR-MDRD Greater than 90
[2020-05-13] MEDS: predniSONE 50 MG TAB PO SCH (09:25)
[2020-05-13] MEDS: Furosemide 20 MG TAB PO SCH (09:25)
[2020-05-13] MEDS: Enoxaparin Sodium 80 MG/0.8 ML SYRINGE SC SCH ×2 (09:25→19:54)
[2020-05-13] MEDS ORDERED: Furosemide 20 MG/2 ML VIAL SLOW IVP SCH (13:00)
[2020-05-13] MEDS ORDERED: Potassium Chloride 20 MEQ TAB PO SCH (13:00)
[2020-05-14] MEDS: Acetaminophen 325 MG TAB PO PRN (01:34)
[2020-05-14] MEDS: Albuterol 200 PUFF (6.7GM INHALER) INH SCH ×3 (03:09→11:50)
[2020-05-14 05:08] LABS: Anion Gap 10 mmol/L (10-20); BUN (Urea Nitrogen) 27 mg/dL (9.8-20.1); Calc. Creatinine Clearance 125 mL/min (70-130); Calcium 7.8 mg/dL (7.8-10.44); Carbon Dioxide 26 mmol/L (23-31); Chloride 107 mmol/L (98-107); Estimated GFR-MDRD Greater than 90; Glucose 103 mg/dL (80-115); Potassium 4.1 mmol/L (3.5-5.1); Sodium 139 mmol/L (136-145)
--- NOTE | 2020-05-14 07:03 | PDOC.FM ---
- Subjective Subjective: Pt is doing well today. She becomes dyspneic with movement but doing well at rest. She had and episode of PAT overnight, biphasic P waves remain consistent. Diuresed 1.3 L. She is not currently on a beta eduardo. She is tolerating PO intake, making urine. - Objective Vital Signs & Weight: Vital Signs (12 hours) Temp Pulse Resp BP Pulse Ox 05/14/20 03:10 97.6 F 89 22 H 140/89 100 05/13/20 23:50 98.1 F 87 20 118/70 93 L 05/13/20 19:30 98.3 F 87 21 H 131/68 100 Weight Weight 98.702 kg I&O: 05/13/20 05/14/20 05/15/20 06:59 06:59 06:59 Intake Total 850 Output Total 2200 Balance -1350 Result Diagrams: 05/13/20 07:19 05/14/20 04:26 Phys Exam - Physical Examination Constitutional: NAD HEENT: PERRLA, moist MMs Neck: no nodes, no JVD Respiratory: no wheezing, no rales decrease air movement Cardiovascular: RRR, no significant murmur Gastrointestinal: soft, non-tender Musculoskeletal: no edema, pulses present Psychiatric: normal affect, A&O x 3 Dx/Plan (1) Acute hypoxemic respiratory failure Code(s): J96.01 - ACUTE RESPIRATORY FAILURE WITH HYPOXIA Status: Acute (2) COPD exacerbation Code(s): J44.1 - CHRONIC OBSTRUCTIVE PULMONARY DISEASE W (ACUTE) EXACERBATION Status: Acute (3) Elevated troponin I level Code(s): R79.89 - OTHER SPECIFIED ABNORMAL FINDINGS OF BLOOD CHEMISTRY Status : Acute (4) HTN (hypertension) Code(s): I10 - ESSENTIAL (PRIMARY) HYPERTENSION Status: Acute (5) Pneumonia due to COVID-19 virus Code(s): U07.1 - COVID-19; J12.89 - OTHER VIRAL PNEUMONIA Status: Acute - Plan Plan: 65 yo F readmitted less than 1 day after discharge to SNF facility due to : Acute vs. [id number] hypoxic respiratory failure 2/2 Covid pneumonia A- stable, pt is in post acute phase of infection and is in inflamatory phase. ID consulted, appreciate recs P- continue nebs/inhaled treatments of mometasone, ipratropium, albuterol - continue prednisone at 50mg PO daily. will plan for a slow taper of steroids for about 1 month - continue O2 support, Wean O2 as tolerated - > 20 days from onset of symptoms. Discontinue Covid precautions. - Accepted [facility] but pt had P wave changes on 05/14 including biphasic P waves, CXR revealed congestion - continue lasix prn, start metoprolol low dose. Follow up with cardiology in outpt setting. - continue Lovenox until 05/21/20 Diastolic Dysfunction Vascular Congestion - as above Biphasic P Waves - monitored overnight - will assess tele strip. If lasix converted back to regular P wave can discharge with impression vascular congestion initiated irritable foci and discharge with lasix to prevent congestion. Need to assess daily for possible A-fib - start metoprolol. - follow up with cards in outpt setting. Hx of HTN - monitor BPs - stable, WNL - Echocardiogram revealed diastolic dysfunction. Smoking History - continue to encourage cessation Hypokalemia - monitor Code: FULL VTE: therapeutic lovenox Diet: Heart healthy Disposition/LOS: discharge to [facility] hopefully Addendum - Attending - Attending Attestation Date/Time: 05/14/20 2710 I personally evaluated the patient and discussed the management with Dr. Tellez. I agree with the History, Examination, Assessment and Plan documented above with any addition or exceptions noted below. The patient is feeling well. O2 sats are back to normal. Will add low dose beta eduardo for the arrhythmia. Will d/c to inpt rehab.
[2020-05-14] MEDS: Mometasone Furoate 120 PUFF 220 MCG INH SCH (08:16)
[2020-05-14] MEDS: Enoxaparin Sodium 80 MG/0.8 ML SYRINGE SC SCH (08:37)
[2020-05-14] MEDS: Furosemide 20 MG TAB PO SCH (08:37)
[2020-05-14] MEDS: predniSONE 50 MG TAB PO SCH (08:37)
[2020-05-14 11:40] VITALS: BP 153/80
[2020-05-14 12:15] VITALS: TEMP 98.3
--- NOTE | 2020-05-15 13:24 | DIS ---
DATE OF ADMISSION: 05/07/2020 DATE OF DISCHARGE: 05/14/2020 DISCHARGE ATTENDING: Dr. Daniella Ochoa. RESIDENT: Rory Tellez DO ADMITTING ATTENDING: Dr. Indio Fried. DISCHARGE ATTENDING: Dr. Daniella Ochoa. CONSULTS: [facility], Dr. Ramesh Ceballos. PROCEDURES: 1. CTA of chest thorax on 05/07/2020, revealed no CT evidence of PE. 2. Echocardiogram on 05/07/2020, revealed EF visually estimated at 60% to 65%. Suggestive diastolic dysfunction. Left atrium is moderately dilated. Mild mitral regurg is present. The aortic valve is sclerotic. Mild tricuspid regurgitation. PRIMARY DIAGNOSES: 1. Acute on chronic hypoxic respiratory failure secondary to postinflammatory changes of COVID. 2. COVID pneumonia. 3. Diastolic dysfunction with vascular congestion. 4. Biphasic P-waves. 5. Hypertension. 6. Smoking history. 7. Chronic obstructive pulmonary disease. 8. Hypokalemia. DISCHARGE MEDICATIONS: 1. Aspirin 81 mg p.o. daily. 2. Robitussin DM 15 mL p.o. q.4 hours p.r.n. allergies. 3. Lovenox 70 mg subcu b.i.d. until 05/21/2020. 4. Spiriva 2 inhales daily. 5. Proventil 2 puffs inhaled q.4 hours p.r.n. shortness of breath. 6. Tums 1000 mg p.o. q.4 hours p.r.n. indigestion. 7. Lasix 20 mg p.o. daily. 8. Atrovent 1 puff inhaled q.i.d. 9. Mometasone 400 mcg inhale b.i.d. 10. Protonix 40 mg p.o. daily. 11. Prednisone 50 mg p.o. daily with a taper over 1 month. 12. Metoprolol succinate 25 mg p.o. daily. DISCONTINUED MEDICATIONS: None. HISTORY OF PRESENT ILLNESS/HOSPITAL COURSE: Lorna Garcia is a 65-year-old lady who was initially hospitalized for COVID pneumonia. She was subsequently discharged with oxygen to retirement. While at retirement and working with physical therapy, she ended up undergoing acute hypoxic respiratory failure. She was subsequently readmitted to the hospital. Due to her length of time from symptoms, she was discontinued from COVID precautions and likely her pulmonary changes were post inflammatory state after having initial insult from COVID pneumonia. She remained on 4 to 5 L for most of her stay and progressed working well with physical therapy. She did desat a few times, working with physical therapy and while she attempted to ambulate on her own. It is recommended that she would have assistance with any kind of ambulation to preserve her oxygenation. By the time of discharge, we felt that her pulmonary tolerance was acceptable for rehabilitation. She did have an episode of and biphasic P-wave changes. We started her on low-dose metoprolol just to prevent her from switching in the atrial fibrillation. She also had vascular congestion, so the goal was to diurese her and decrease the chance for an arrhythmia. We will continue Lasix 20 mg p.o. p.r.n. if she does become short of breath. The patient was also discontinued the initial hospital visit on Lovenox 70 mg b.i.d. for 14 days. This will continue until 05/21/2020. Electrolytes were repleted as needed. DISPOSITION: Stable. DISCHARGE INSTRUCTIONS: 1. Location: [facility]. 2. Diet: Heart healthy. 3. Activity: Cardiopulmonary limitations with physical therapy and occupational therapy rehab. 4. Followup: Follow up with primary care provider, Dr. Ochoa after discharge from [facility]. Job ID: [id number]
== END 2020-05-14 13:20 | DRG 177 ==
LOC: ERS 09:31 → 2SW 11:14
PROVIDERS: ADMIT Emergency Medicine; ATTEND Emergency Medicine
PROC: 8E0ZXY6 Isolation (ICD-10-PCS; principal; 2020-05-07)
DX: U07.1 COVID-19 (principal); J12.89 Other viral pneumonia; J96.21 Acute and chronic respiratory failure with hypoxia; J44.0 Chronic obstructive pulmonary disease with (acute) lower respiratory infection; J44.1 Chronic obstructive pulmonary disease with (acute) exacerbation; Z51.5 Encounter for palliative care; I11.0 Hypertensive heart disease with heart failure; I50.9 Heart failure, unspecified; R40.2412 Glasgow coma scale score 13-15, at arrival to emergency department; Z88.0 Allergy status to penicillin; Z79.82 Long term (current) use of aspirin; Z87.891 Personal history of nicotine dependence; Z79.52 Long term (current) use of systemic steroids; Z79.51 Long term (current) use of inhaled steroids
CPT/HCPCS: 36415; 71045; 71275; 80048; 82565; 82728; 83880; 84484; 85014; 85018; 85025; 85049; 85379; 86140; 93005; 93010; 93306; 94760; 94799; 96374; J1100; J1650; J1940; J7512; Q9967